=== PATIENT | female | born 1945 | race Caucasian/White ===

== ENCOUNTER 2020-03-29 18:57 | Emergency (ER) | payer MEDICARE, MEDICAID ==
[~2020-03-29] VITALS: Ht 170.2 cm; Wt 96.0 kg
[~2020-03-29 18:57] MED LIST: ANAS1TAB PO; ASCO500T8 PO; CHOL400C11 PO; DIAZ5TAB4 PO; DOCU-131 PO; LISI-167 PO; NAPR-856 PO; OXYC-302 PO; PIOG15TA66 PO; ROSU10TA2 PO
[2020-03-29 19:13] VITALS: BP 139/58
--- NOTE | 2020-03-29 19:28 | NUR ---
THIS IS A 75Y F BIB EMS FROM [facility] IN [place] FOR POTENTIAL INCARCERATED HERNIA. PT PRESENTED TO ER THERE FOR INCREASE IN PAIN SURROUNDING HERNIA. PER PT HERNIA HAS BEEN PRESENT FOR A PERIOD OF YEARS FOLLOWING HER AURA (13YRS AGO). PT CONNECTED TO ALL MONITORING, VSS, PT ABLE TO SPEAK IN 2-4 WORD SENTENCES AND URGES STAFF THAT SHE IS ALWAYS LIKE THIS AND STILL SMOKES WITH HER COPD.
--- NOTE | 2020-03-29 19:32 | NUR ---
MD AT BEDSIDE TO ASSESS PT
--- NOTE | 2020-03-29 19:37 | NUR ---
MALGORZATA ELENA [phone] (HOUSE PHONE)
[2020-03-29] MEDS ORDERED: ALBU18HF INH (19:53)
[2020-03-29] MEDS ORDERED: METF500T17 PO (19:53)
[2020-03-29] MEDS ORDERED: TIOT18CA INH (19:53)
[2020-03-29] MEDS ORDERED: ACTOS (19:53)
[2020-03-29] MEDS ORDERED: SODIUM CHLORIDE 0.9% 1,000 ML IV SCH (20:26)
[2020-03-29] MEDS ORDERED: TEMPLATE NON-FORMULARY MED. (Albuterol Sulfate (Ventolin Hfa) 1 PUFF) INH SCH (20:30)
[2020-03-29] MEDS ORDERED: ONDANSETRON 2MG/ML, 2ML IVPush PRN (20:30)
[2020-03-29] MEDS ORDERED: BISACODYL 10 MG SUPP PR PRN (20:30)
[2020-03-29] MEDS ORDERED: morphine SULFATE 10 MG/ML, 1ML IVPush PRN (20:30)
[2020-03-29] MEDS ORDERED: NICOTINE 14MG/24 HR PATCH.TD24 TD SCH (20:30)
[2020-03-29] MEDS ORDERED: hydrALAzine 20 MG/ML, 1ML IVPush PRN (20:30)
--- NOTE | 2020-03-29 20:30 | NUR ---
REPORT TO FLOOR RN ALL QUESTIONS ADDRESSED PT READY FOR TRANSFER TO FLOOR AT THIS TIME
--- NOTE | 2020-03-29 20:58 | NUR ---
SURGEON HAS BEEN TO SEE PT. PT TO BE DC AND FOLLLOW UP OUT PT AT THIS TIME HERNIA HAS BEEN REDUCED AND PT NO LONGER IN PAIN. GRANDGERALDINE CALLED FOR A RIDE HOME AT THIS TIME. STS HE WILL BE HERE SOON
[2020-03-29] MEDS ORDERED: INSULIN LISPRO 100 UNITS/ML, PEN SQ-INSULIN SCH (21:00)
[2020-03-30] MEDS ORDERED: TEMPLATE NON-FORMULARY MED. (Tiotropium Bromide** (Spiriva**) 18 MCG) INH SCH (09:00)
[2020-04-01] MEDS ORDERED: CEPH-367 PO (15:09)
== END 2020-03-29 22:59 | disposition home or self-care (01) ==
LOC: ED 20:41 → EDIP 20:58 → UNDOADMIN 20:58 → ED 22:59
DX: K43.2 Incisional hernia without obstruction or gangrene (principal); J44.9 Chronic obstructive pulmonary disease, unspecified; E78.00 Pure hypercholesterolemia, unspecified; I10 Essential (primary) hypertension; E11.9 Type 2 diabetes mellitus without complications; E78.5 Hyperlipidemia, unspecified; Z85.3 Personal history of malignant neoplasm of breast; Z90.49 Acquired absence of other specified parts of digestive tract; Z85.828 Personal history of other malignant neoplasm of skin
CPT/HCPCS: 36415; 83036; 99283; 99284